=== PATIENT | male | born 1995 | race Caucasian/White ===

== ENCOUNTER 2017-01-07 13:53 | Inpatient (IN) | payer OTHER ==
[~2017-01-07] VITALS: Ht 180.3 cm; Wt 67.1 kg
[2017-01-07 15:00] VITALS: BP 127/70
--- NOTE | 2017-01-07 17:00 | NUR ---
PRE-ASSESSMENT: Pre-Assessment done at intake office, client is A/O x4, he presents with flat affect, anxious mood. Flushed face and dilated pupils noted. T 98.2, RR 18, BP 127/70, HR 96, spO2 @ 97% on RA, Pain 0/10. He is fully ambulatory. He denies any allergies to medication or food, but he reports seasonal allergies. He denies any withdrawal-induced seizure. PMH: insomnia, Asthma, Hep C. Medications taken at home Seroquel 200mg HS PO Ventolin PRN. Substance history Heroin 2gm IV daily for a month, last used morning prior to admission 1/4gm. Prescribed Klonopin 2mg BID daily, for the past 4 years, twice a week he takes 8 mg, last used 01/06/17. Xanax 8mg 4 X week for a month. Methamphetamine 1gm IV 4 X week for a month, last used 01/06/17. Marijuana an eight smoked daily for the past 3 years. Cocaine 1mg IV, last used a couple of months ago. Longest period of sobriety maybe a month, but he can not remember. He does not have a PCP, client gives verbal consent for HIV and declines Pneumonia vaccine at this time, stating maybe he already got it somewhere else this year. Protocol for vitals, urine drug screen, blood drawn and home medication discuss, client verbalizes understanding.
[2017-01-07 17:17] LABS: *AMPHETAMINE, URINE NEGATIVE (NEGATIVE); *BARBITURATE, URINE POSITIVE (NEGATIVE); *CANNABINOID, URINE POSITIVE (NEGATIVE); *COCCAINE, URINE NEGATIVE (NEGATIVE); *OPIATE, URINE POSITIVE (NEGATIVE); *PHENCYCLIDINE SCREEN,URINE NEGATIVE (NEGATIVE)
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
[2017-01-07] MEDS ORDERED: IBUPROFEN 600 MG TABLET PO PRN (18:15)
[2017-01-07] MEDS ORDERED: MAGNESIUM HYDROXIDE 30 ML LIQUID UDC PO PRN (18:15)
[2017-01-07] MEDS ORDERED: diphenhydrAMINE 50 MG CAPSULE PO PRN (18:15)
[2017-01-07] MEDS ORDERED: DICYCLOMINE HCL 20 MG TABLET PO PRN (18:15)
[2017-01-07] MEDS ORDERED: METHOCARBAMOL 750 MG TABLET PO PRN (18:15)
[2017-01-07] MEDS ORDERED: LOPERAMIDE HCL 2 MG CAPSULE PO PRN ×2 (18:15)
[2017-01-07] MEDS ORDERED: MAG HYDROX/AL HYDROX/SIMETH 30 ML LIQUID UDC PO PRN (18:15)
[2017-01-07] MEDS ORDERED: CLONIDINE HCL 0.1 MG TABLET PO PRN (18:15)
[2017-01-07] MEDS ORDERED: DIAZEPAM 10 MG TABLET PO PRN ×2 (18:15)
[2017-01-07] MEDS ORDERED: MIRALAX 17 GM POWD.PACK PO PRN (18:15)
[2017-01-07] MEDS ORDERED: ACETAMINOPHEN 325 MG TABLET PO PRN (18:15)
[2017-01-07] MEDS ORDERED: LORAZEPAM 2 MG/1 ML VIAL IM PRN (18:15)
[2017-01-07] MEDS ORDERED: BUPRENORPHINE HCL 2 MG TAB.SUBL SL PRN (18:15)
[2017-01-07] MEDS ORDERED: DIAZEPAM 5 MG TABLET PO PRN (18:15)
[2017-01-07] MEDS ORDERED: ONDANSETRON ODT 4 MG TAB.RAPDIS SL PRN (18:15)
[2017-01-07] MEDS ORDERED: ONDANSETRON 4 MG/2 ML VIAL IM PRN (18:15)
--- NOTE | 2017-01-07 19:15 | NUR ---
Start of Shift Note: Patient is a 21 y/o male admitted today 01/07/17 for BEnzo, Opiate and Methampethamine dependence. Patient reported medical history of Asthma, Insomnia, Concussion (August2016) & Hepatitis C. No seizure history noted. Patient has seasonal allergies. No allergies to medication or food. Patient wishes to be full code. Patient has no taper yet. Patient is alert & oriented x4. Patient is ambulatory with a steady gait. No shortness of breath noted. Respiration even & unlabored. Abdomen soft & non-distended. No complaints of nausea/vomiting. Patient presented with symptoms of sweating, chills, generalized body aches, stomach cramps & mild headache. Hand tremors felt. No hallucinations noted. Safety measures in place. Bed locked in lowest position. Both side rails up. Call light within pts reach. Will continue to monitor patient.
--- NOTE | 2017-01-07 19:30 | NUR ---
END OF SHIFT Endorsed to incoming nurse, client is a 21 yo male admitted for withdrawal from Benzodiazepine and Opiate. He is scheduled to start a 5 day Diazepam taper today @ 2100. Last CIWA 3/ COWS 4 @ 1715. He reports seasonal allergies, full code, regular diet. Adequate PO fluid intake 500mL, void x 1, Client denies history of withdrawal-induced seizure. She is on seizure precautions. Call light within reach. Side rails up x2/padded, bed locked and in low position.
[2017-01-07] MEDS ORDERED: ALBU18HF2 INH (19:37)
[2017-01-07] MEDS ORDERED: QUET200T PO (19:37)
[2017-01-07 19:54] LABS: BASOPHILS % (AUTO) 0.2 % (0.0-2.0); EOSINOPHILS # (AUTO) 0.1 K/uL (0.0-0.7); HEMATOCRIT 40.7 % (40-50); HEMOGLOBIN 13.6 G/DL (14.0-18.0); LYMPHOCYTES # (AUTO) 1.3 K/UL (0.8-4.8); LYMPHOCYTES % (AUTO) 21.2 % (20.5-51.5); MEAN CORPUSCULAR HEMOGLOBIN 30.2 UUG (27.0-31.0); MEAN CORPUSCULAR HGB CONC 34 g/dL (32.0-37.0); MEAN CORPUSCULAR VOLUME 90.2 FL (82.0-92.0); MONOCYTES # (AUTO) 0.7 K/UL (0.1-1.30); MONOCYTES % (AUTO) 11.3 % (0.0-11.0); NEUTROPHILS # (AUTO) 4.3 K/UL (1.8-8.9); NEUTROPHILS % (AUTO) 66.3 % (38.5-71.5); PLATELET COUNT (AUTO) 246 K/UL (150-450); RED BLOOD CELL COUNT(AUTO) 4.52 MIL/UL (4.7-6.1); WHITE BLOOD COUNT (AUTO) 6.4 K/UL (4.0-11.2)
[2017-01-07 20:00] VITALS: BP 107/60
[2017-01-07 20:04] LABS: ALANINE AMINOTRANSFERASE 107 U/L (16-63); ALKALINE PHOSPHATASE 70 U/L (50-136); ASPARTATE AMINOTRANSFERASE 65 U/L (15-37); BILIRUBIN,TOTAL 0.2 mg/dL (0.2-1.0); CARBON DIOXIDE 34 mmol/L (21-32); CHLORIDE 103 mmol/L (98-107); CREATININE 0.8 mg/dL (0.6-1.3); GLUCOSE 89 mg/dL (74-106); POTASSIUM 4.5 mmol/L (3.5-5.1); TOTAL PROTEIN, SERUM 7.6 g/dL (6.4-8.2); UREA NITROGEN, BLOOD 6 mg/dL (7-18)
[2017-01-07 20:07] LABS: ETHANOL < 3 MG/DL (0-0)
[2017-01-07] MEDS ORDERED: DIAZEPAM 10 MG TABLET PO ONE (21:00)
--- NOTE | 2017-01-07 21:00 | NUR ---
Patient's drug screen is positive for barbiturates. Pt stated that he might have taken phenobarbital but pt is not really sure.
--- NOTE | 2017-01-07 21:09 | NUR ---
PRN Administration Patient complaining of mild headache & stomach cramps. PRN Motrin & Bentyl administered as ordered. Patient also requesting for medication to help him sleep. PRN Benadryl given. Will continue to monitor for effectiveness of medication.
--- NOTE | 2017-01-07 21:09 | NUR ---
Patient presented with complains of sweating, chills, generalized body aches, stomach cramps and mild headache. Patient was given a one time dose of Valium 10mg for symtoms of withdrawal and for CIWA of 6 as ordered. Will continue to monitor patient.
--- NOTE | 2017-01-07 22:09 | NUR ---
PRN Reassessment Patient verbalized relief from stomach cramps and headache. Patient lying in bed with no facial grimacing noted. Patient appears comfortable. Will continue to montior patient.
[2017-01-08] VITALS: BP 116/75
[2017-01-08 04:00] VITALS: BP 112/62
--- NOTE | 2017-01-08 07:03 | NUR ---
End of Shift Note: Patient is a 21 y/o male admitted yesterday for BEnzo, Opiate and Methampethamine dependence. Patient still has no taper. Patient was given a Benadryl for sleep and a one time dose of Valium at 2100 as ordered and was effective. Patient remained stable and vitals remained WNL. Patient is compliant with treatment plan. Last COWS 6 CIWA 3. Patient still asleep at this time and appears comfortable. No s/s of distress noted. Pt slept for a total of 9 hours. Pt voided 1x with no bowel movement. All needs attended & met. Safety precautions are in place. Will continue to monitor patient.
[2017-01-08 08:00] VITALS: BP 135/63
--- NOTE | 2017-01-08 08:00 | NUR ---
START OF SHIFT Received pt Aox4. Patient states he slept "alright" but is experiencing chills and stomach cramps. Patient is to start taper this shift.. PRN benadryl, Motrin, and Bentyl given per night nurse. Patient slept 9 hours. COWS 10 CIWA 8 this morning at 0800. Encouraged pt to increase fluid intake. Encouraged pt to rest during shift. Encouraged pt to notify RN if S/S of W/D worsen. Vital signs stable. Will monitor closely and offer help frequently.
[2017-01-08] MEDS: DIAZEPAM 10 MG TABLET PO SCH ×4 (08:56→21:19)
[2017-01-08] MEDS: BUPRENORPHINE HCL 2 MG TAB.SUBL SL SCH ×4 (08:56→21:19)
[2017-01-08] MEDS: MULTIVITAMINS,THERAPEUTIC TABLET PO SCH (08:56)
[2017-01-08] MEDS ORDERED: 5 DAY TAPER VALIUM-SERENITY PROTOCOL PO PRN (09:00)
[2017-01-08] MEDS ORDERED: 5 DAY TAPER BUPRENORPHINE -SERENITY PROTOCOL SL PRN (09:00)
[2017-01-08] MEDS ORDERED: TUBERCULIN,PURIF.PROT.DERIV. 5 TU/0.1 ML TEST ID ONE (09:00)
[2017-01-08 12:00] VITALS: BP 111/70
[2017-01-08] MEDS ORDERED: ALBUTEROL SULFATE 8 GM HFA.AER.AD INH PRN (13:30)
[2017-01-08] MEDS ORDERED: ALBUTEROL SULFATE 2.5 MG/3 ML NEBU NEB PRN (14:00)
[2017-01-08 16:55] VITALS: BP 133/89
--- NOTE | 2017-01-08 18:45 | NUR ---
END OF SHIFT NOTE PATIENT STARTED ON VALIUM/SUBUTEX TAPER THIS SHIFT. NO PRNS GIVEN DURING SHIFT. PATIENT RESTED DURING SHIFT AND SOCIALIZED WITH PEERS. LAST COWS 10 CIWA 6. VITAL SIGNS STABLE. NO DISTRESS NOTED. ALL NEEDS MET. ALL SAFETY MEASURES IN PLACE. WILL ENDORSE TO NIGHT NURSE.
--- NOTE | 2017-01-08 19:15 | NUR ---
START OF SHIFT NOTE : Patient is a 21 y/o male admitted today 01/07/17 for BEnzo, Opiate and Methampethamine dependence. Patient reported medical history of Asthma, Insomnia, Concussion (August2016) & Hepatitis C. No seizure history noted. Patient has seasonal allergies. No allergies to medication or food. Patient wishes to be full code. No shortness of breath noted. Respiration even & unlabored. Abdomen soft & non-distended. No complaints of nausea/vomiting. Patient presented with symptoms mild headache, hand tremors felt. No hallucinations noted. Safety measures in place. Bed locked in lowest position. Both side rails up. Call light within pts reach. Will continue to monitor patient.
[2017-01-08 20:00] VITALS: BP 130/88
[2017-01-08] MEDS: QUETIAPINE FUMARATE 200 MG TABLET PO SCH (21:19)
--- NOTE | 2017-01-09 06:36 | NUR ---
END OF SHIFT NOTE : Patient is a 21 y/o male admitted today 01/07/17 for BEnzo, Opiate and Methampethamine dependence. Patient reported medical history of Asthma, Insomnia, Concussion (August2016) & Hepatitis C. No seizure history noted. Patient has seasonal allergies. No allergies to medication or food. Patient wishes to be full code. Pt remains compliant with the treatment plan. No PRNs were given during my shift. V/S remain WNL. RR=16, even and unlabored, lungs clear upon auscultation, abdomen soft and non- distended. Pt denies nausea, vomiting and diarrhea. LAST CIWA=3 ,COWS=3 at 0400 , [id number] ml, voided x4 , slept 5 hours. Safety measures in place : bed on lowest position with side rails x2 up for safety, call light within reach. Will continue to monitor closely and offer help.
--- NOTE | 2017-01-09 07:52 | NUR ---
START OF SHIFT Received pt Aox4. Patient states he feels "okay." Patient presents fatigued. Patient is continuing on 5 day Subutex/5 day Valium taper. No PRNs given per night nurse. Patient slept 5 hours. Last COWS 3 CIWA 3 per night nurse. Encouraged pt to increase fluid intake. Encouraged pt to rest during shift. Encouraged pt to notify RN if S/S of W/D worsen. Vital signs stable. Will monitor closely and offer help frequently.
[2017-01-09 08:00] VITALS: BP 112/65
[2017-01-09] MEDS: GABAPENTIN 300 MG CAPSULE PO SCH ×2 (08:53→14:13)
[2017-01-09] MEDS: BUPRENORPHINE HCL 2 MG TAB.SUBL SL SCH ×3 (08:53→21:59)
[2017-01-09] MEDS: DIAZEPAM 10 MG TABLET PO SCH ×3 (08:53→21:59)
[2017-01-09] MEDS: MULTIVITAMINS,THERAPEUTIC TABLET PO SCH (08:53)
[2017-01-09 12:00] VITALS: BP 114/66
[2017-01-09 13:09] LABS: HEPATITIS B SURFACE AG Negative (Negative)
--- NOTE | 2017-01-09 15:25 | NUR ---
[facility] POSITIVE. CONTACT PRECAUTIONS IN PLACE. PT EDUCATED ON MRSA AND ISOLATION. ALL QUESTIONS ANSWERED
[2017-01-09 16:00] VITALS: BP 116/69
--- NOTE | 2017-01-09 16:15 | NUR ---
PRN REASSESSMENT PATIENT REPORTS IMPROVEMENT IN HEARTBURN
--- NOTE | 2017-01-09 17:33 | NUR ---
PRN MEDICATION MAALOX GIVEN FOR C/O HEARTBURN
--- NOTE | 2017-01-09 18:26 | NUR ---
END OF SHIFT NOTE PATIENT CONTINUED ON VALIUM/SUBUTEX TAPER THIS SHIFT. PATIENT ON ISOLATION PRECAUTIONS FOR MRSA OF THE NARES. PRN MAALOX GIVEN DURING SHIFT. PATIENT ATTENDED GROUPS AND ACTIVITIES AND SOCIALIZED WITH PEERS. LAST COWS 4 CIWA 3. VITAL SIGNS STABLE. NO DISTRESS NOTED. ALL NEEDS MET. ALL SAFETY MEASURES IN PLACE. WILL ENDORSE TO NIGHT NURSE.
[2017-01-09] MEDS ORDERED: CALCIUM CARBONATE 500 MG TAB.CHEW PO PRN (19:00)
--- NOTE | 2017-01-09 19:15 | NUR ---
START OF SHIFT NOTE : Patient is a 21 y/o male admitted today 01/07/17 for BEnzo, Opiate and Methampethamine dependence. Patient reported medical history of Asthma, Insomnia, Concussion (August2016) & Hepatitis C. No seizure history noted. Patient has seasonal allergies. No allergies to medication or food. Patient wishes to be full code. No shortness of breath noted. Respiration even & unlabored. Abdomen soft & non-distended. No complaints of nausea/vomiting. Patient presented with symptoms mild headache, hand tremors felt. No hallucinations noted. Pt. is on Isolation because of MRSA nares. Safety measures in place. Bed locked in lowest position. Both side rails up. Call light within pts reach. Will continue to monitor patient.
[2017-01-09 20:00] VITALS: BP 140/80
[2017-01-09] MEDS: MUPIROCIN 2% OINT 22 GM TUBE NS SCH (21:00)
[2017-01-09] MEDS ORDERED: GABAPENTIN 300 MG CAPSULE PO SCH (21:00)
[2017-01-09] MEDS: QUETIAPINE FUMARATE 200 MG TABLET PO SCH (21:00)
[2017-01-09] MEDS: CLONIDINE HCL 0.1 MG TABLET PO SCH (22:01)
--- NOTE | 2017-01-10 06:49 | NUR ---
END OF SHIFT NOTE : Patient is a 21 y/o male admitted today 01/07/17 for BEnzo, Opiate and Methamphetamine dependence. Patient reported medical history of Asthma, Insomnia, Concussion (August2016) & Hepatitis C. No seizure history noted. Patient has seasonal allergies. No allergies to medication or food. Patient wishes to be full code. Pt. is on Isolation because of MRSA nares. Bactroban oint. not given, because pt. was out of the room. Pt remains compliant with the treatment plan. No PRNs were given during my shift. V/S remain WNL. RR=16, even and unlabored, lungs clear upon auscultation, abdomen soft and non- distended. Pt denies nausea, vomiting and diarrhea. LAST CIWA=3 ,COWS=3 at 0400 , INTAKE= 710 ml, voided x1 , slept 6 1/2 hours. Safety measures in place : bed on lowest position with side rails x2 up for safety, call light within reach. Will continue to monitor closely and offer help.
--- NOTE | 2017-01-10 07:00 | NUR ---
Start of Shift Notes: Received patient in his room. Awake, alert and verbally responsive. Oriented x 4. Able to make needs known. Affect flat. Respirations even and unlabored. No SOB noted. Skin warm and dry to touch. Abdomen soft and non-distended with (+) BS in all 4 quadrants. No complains of N/V/D or constipation noted. Bladder non-distended. Voids independently. Denies dysuria. Ambulatory ad amado with steady gait. Patient is a 21 year old male admitted for opiate and BZO dependence who was placed on a modified Valium and 5-day Valium taper as ordered. No adverse reactions noted. Has past medical hx of asthma, insomnia, concussion on August 2016 and Hep C. Has seasonal allergies. Educated patient on his current plan of care for the day and his medication regimen. Encouraged support, oral fluid intake and group participation to learn new skills to prevent relapse. Safety precautions in place. Call light kept in reach. Will continue to monitor during the day.
[2017-01-10 08:00] VITALS: BP 114/62
[2017-01-10] MEDS: CLONIDINE HCL 0.1 MG TABLET PO SCH ×2 (08:46→21:06)
[2017-01-10] MEDS: GABAPENTIN 300 MG CAPSULE PO SCH ×3 (08:46→21:07)
[2017-01-10] MEDS: MULTIVITAMINS,THERAPEUTIC TABLET PO SCH (08:46)
[2017-01-10] MEDS: DIAZEPAM 5 MG TABLET PO SCH ×4 (08:46→21:07)
[2017-01-10] MEDS: MUPIROCIN 2% OINT 22 GM TUBE NS SCH ×2 (08:47→21:06)
[2017-01-10] MEDS ORDERED: BUPRENORPHINE HCL 2 MG TAB.SUBL SL SCH (09:00)
[2017-01-10 12:00] VITALS: BP 120/61
[2017-01-10] MEDS: BUPRENORPHINE HCL 2 MG TAB.SUBL SL SCH ×2 (14:18→21:07)
[2017-01-10 16:00] VITALS: BP 132/65
--- NOTE | 2017-01-10 18:33 | NUR ---
END OF SHIFT NOTE PATIENT CONTINUED ON VALIUM/SUBUTEX TAPER THIS SHIFT. PATIENT ON ISOLATION PRECAUTIONS FOR MRSA OF THE NARES. NO PRNS GIVEN DURING SHIFT DETOX MEDS ARE EFFECTIVE. PATIENT ATTENDED GROUPS AND ACTIVITIES AND SOCIALIZED WITH PEERS. LAST COWS 4 CIWA 2. VITAL SIGNS STABLE. NO DISTRESS NOTED. ALL NEEDS MET. ALL SAFETY MEASURES IN PLACE. WILL ENDORSE TO NIGHT NURSE.
[2017-01-10 20:00] VITALS: BP 133/79
--- NOTE | 2017-01-10 20:00 | NUR ---
START OF SHIFT NOTE PATIENT ALERT AND ORIENTED X 4. RESPIRATION EVEN AND UNLABORED. NO SOB. PATIENT REPORTS ANXIETY, SWEATING , HEADACHE AND GENERALIZED BODY ACHES 6/10, RESTLESSNESS, NO N/V AND STUFFY NOSE. RECEIVED REPORT FROM DAY SHIFT NURSE. PATIENT CONTINUE ON 5 DAY ATIVAN AND 5 DAY SUBUTEX TAPER. PATIENT REPORTS PMH OF ASTHMA, INSOMNIA, CONCUSSION (AUGUST 2016) AND HEP C. PATIENT WITH SEASONAL ALLERGY . NO SEIZURE HISTORY. SKIN INTACT. PATIENT IS ON CONTACT ISOLATION FOR MRSA OF NARES. PATIENT DID NOT REQUIRE ANY PRN MEDICATION. LAST COWS 2 AND CIWA 2. PATIENT IS ON FALL/SEIZURE PRECAUTION. SAFETY MEASURES IN PLACE. CALL LIGHT IN REACH. WILL CONTINUE TO MONITOR. '
[2017-01-10] MEDS: QUETIAPINE FUMARATE 200 MG TABLET PO SCH (21:07)
[2017-01-10] MEDS: BACLOFEN 10 MG TABLET PO SCH (21:07)
[2017-01-11] VITALS: BP 112/62
[2017-01-11 04:00] VITALS: BP 115/52
--- NOTE | 2017-01-11 06:50 | NUR ---
END OF SHIFT NOTE PATIENT REMAIN ALERT AND ORIENTED X 4. RESPIRATION EVEN AND UNLABORED. NO SOB. PATIENT REPORTED ANXIETY, SWEATING , HEADACHE AND GENERALIZED BODY ACHES 6/10, RESTLESSNESS, NO N/V AND STUFFY NOSE BEGINNING OF SHIFT. PATIENT CONTINUE ON 5 DAY ATIVAN AND 5 DAY SUBUTEX TAPER, TOLERATED WELL. NO ADVERSE REACTION. PATIENT COMPLIANT WITH MEDICATIONS AND TREATMENT PLAN. PATIENT ATTENDED GROUPS. PATIENT IS ON CONTACT ISOLATION FOR MRSA OF NARES, STRICTLY OBSERVED. ON BACTROBAN OINTMENT. PATIENT DID NOT REQUIRE ANY PRN MEDICATION. PATIENT IS ON FALL/SEIZURE PRECAUTION. SAFETY MEASURES IN PLACE. CALL LIGHT IN REACH. WILL CONTINUE TO MONITOR. SLEPT HOURS. FLUID INTAKE ML. VOIDED X . BM. LAST COWS 1 AND CIWA 1.
--- NOTE | 2017-01-11 07:41 | NUR ---
START OF SHIFT NOTE : Received report from night auditor nurse. Patient is a 21 y/o male admitted today 01/07/17 for Benzo, Opiate and Methampethamine dependence. Pt is on a 5 day Valium and 5 day Subutex tapers. Tolerating well. Pt is Hep C+. Pt is alert and oriented X4. Color good, skin warm and dry. Resting in bed. Safety precautions observed. Call light within reach. Will continue to monitor.
[2017-01-11] MEDS: BOOST PLUS 237 ML LIQUID (RICH CHOCOLATE) PO SCH ×2 (08:00→17:19)
[2017-01-11 08:29] VITALS: BP 115/52
[2017-01-11] MEDS: CLONIDINE HCL 0.1 MG TABLET PO SCH ×3 (09:00→21:18)
[2017-01-11] MEDS: BUPRENORPHINE HCL 2 MG TAB.SUBL SL SCH ×3 (09:39→21:18)
[2017-01-11] MEDS: MULTIVITAMINS,THERAPEUTIC TABLET PO SCH (09:39)
[2017-01-11] MEDS: BACLOFEN 10 MG TABLET PO SCH (09:39)
[2017-01-11] MEDS: GABAPENTIN 300 MG CAPSULE PO SCH ×3 (09:39→21:17)
[2017-01-11] MEDS: DIAZEPAM 5 MG TABLET PO SCH ×3 (09:39→21:18)
[2017-01-11] MEDS: MUPIROCIN 2% OINT 22 GM TUBE NS SCH ×2 (09:40→21:17)
[2017-01-11 13:18] VITALS: BP 118/68
[2017-01-11] MEDS: BACLOFEN 20 MG TABLET PO SCH ×2 (14:23→21:18)
[2017-01-11] MEDS ORDERED: BACLOFEN 10 MG TABLET PO SCH (15:00)
[2017-01-11 17:22] VITALS: BP 118/68
--- NOTE | 2017-01-11 18:46 | NUR ---
END OF SHIFT NOTE: Report given to [employer] senior specialist nurse . Patient is a 21 y/o male admitted today 01/07/17 for Benzo, Opiate and Methampethamine dependence. Pt is on a 5 day Valium and 5 day Subutex tapers. Tolerating well. Pt is Hep C+. Pt is alert and oriented X4. Color good, skin warm and dry. Vital signs have remained stable throughout shift . Last CIWA 4 COWS 5 @ 1500. Safety precautions observed. Call light within reach
[2017-01-11 20:00] VITALS: BP 147/82
--- NOTE | 2017-01-11 20:00 | NUR ---
START OF SHIFT NOTE PATIENT ALERT AND ORIENTED X 4. RESPIRATION EVEN AND UNLABORED. PATIENT REPORTS ANXIETY, SWEATING, NO N/V, DENIES ANY PAIN, STUFFY NOSE AND NOTED RESTLESS. RECEIVED REPORT FROM DAY SHIFT NURSE. PATIENT IS A 21 YEAR OLD MALE ADMITTED FOR BENZO/OPIATE DEPENDENCE. PATIENT CONTINUE ON 5 DAY ATIVAN AND 5 DAY VALIUM TAPER, TOLERATED WELL. NO ADVERSE REACTION. PATIENT WITH SEASONAL ALLERGIES. PATIENT REPORTS PMH OF ASTHMA, INSOMNIA, CONCUSSION (AUGUST 2016) AND HEPATITIS C. SKIN INTACT. PATIENT IS ON FALL/SEIZURE PRECAUTION. PATIENT COMPLIANT WITH MEDICATION AND TREATMENT PLAN. PATIENT DID NOT REQUIRE ANY PRN MEDICATION. LAST COWS 5 AND CIWA 4.SAFETY MEASURES IN PLACE. CALL LIGHT IN REACH. WILL CONTINUE TO MONITOR. Addendum: 01/12/17 at 0156 by TROY MARTINO LVN CONTINUE ON CONTACT ISOLATION FOR MRSA OF NARES. PATIENT ON BACTROBAN OINTMENT.
[2017-01-11] MEDS: QUETIAPINE FUMARATE 200 MG TABLET PO SCH (21:18)
--- NOTE | 2017-01-12 | NUR ---
COWS/CIWA/VS PATIENT REFUSED TO BE WOKEN UP FOR VS. COWS/CIWA UNABLE TO ASSESS. PATIENT IN BED ASLEEP. NO S/S OF DISTRESS. RR. 14. SAFETY MEASURES IN PLACE. CALL LIGHT IN REACH. WILL CONTINUE TO MONITOR.
--- NOTE | 2017-01-12 07:10 | NUR ---
END OF SHIFT NOTE PATIENT HAD UNEVENTFUL NIGHT. PATIENT REMAIN ALERT AND ORIENTED X 4. RESPIRATION EVEN AND UNLABORED. PATIENT REPORTS ANXIETY, SWEATING, NO N/V, DENIES ANY PAIN, STUFFY NOSE AND NOTED RESTLESS. PATIENT CONTINUE ON 5 DAY ATIVAN AND 5 DAY VALIUM TAPER FOR BENZO/OPIATE DEPENDENCE, TOLERATED WELL. NO ADVERSE REACTION WITH SEASONAL ALLERGIES. PATIENT REPORTS PMH OF ASTHMA, INSOMNIA, CONCUSSION (AUGUST 2016) AND HEPATITIS C. SKIN INTACT. PATIENT IS ON FALL/SEIZURE PRECAUTION. PATIENT COMPLIANT WITH MEDICATION AND TREATMENT PLAN. PATIENT DID NOT REQUIRE ANY PRN MEDICATION.SAFETY MEASURES IN PLACE. CALL LIGHT IN REACH. WILL CONTINUE TO MONITOR. SLEPT 6 HOURS. FLUID INTAKE 1,105 ML. VOIDED X 2 . NO BM. LAST COWS 5 AND CIWA 4 .
--- NOTE | 2017-01-12 07:36 | NUR ---
BEGINNING OF SHIFT Patient endorsement report received from night guard nurse, all pertinent information discussed. Patient is a 21 year old male, with admitting Dx: opiate/etoh/bzo dependence. with substance use history of methamphetamine and cocaine. Patient admitted 01/07/2017, currently with ongoing taper of 5 day Subutex and 5 day Valium as ordered, well tolerated, no ASE noted, under close observation. Patient received no PRNs during night guard. Patient slept for 6 hours. Patient received awake, alert and oriented x4, educated regarding plan of care for the day and medication regimen with good verbal understanding. Safety measures in place. call light kept with in reach, will continue to monitor closely. safety measures in place.
[2017-01-12 08:33] VITALS: BP 118/70
[2017-01-12] MEDS: BACLOFEN 20 MG TABLET PO SCH ×3 (08:36→21:03)
[2017-01-12] MEDS: GABAPENTIN 300 MG CAPSULE PO SCH ×3 (08:36→21:03)
[2017-01-12] MEDS: CLONIDINE HCL 0.1 MG TABLET PO SCH ×3 (08:36→21:03)
[2017-01-12] MEDS: MULTIVITAMINS,THERAPEUTIC TABLET PO SCH (08:36)
[2017-01-12] MEDS: MUPIROCIN 2% OINT 22 GM TUBE NS SCH ×2 (08:37→21:02)
[2017-01-12] MEDS: BOOST PLUS 237 ML LIQUID (RICH CHOCOLATE) PO SCH ×2 (08:37→17:27)
[2017-01-12] MEDS ORDERED: DIAZEPAM 5 MG TABLET PO SCH (09:00)
[2017-01-12] MEDS ORDERED: BUPRENORPHINE HCL 2 MG TAB.SUBL SL SCH ×2 (09:00)
[2017-01-12 12:58] VITALS: BP 125/80
[2017-01-12 17:00] VITALS: BP 101/61
--- NOTE | 2017-01-12 18:57 | NUR ---
END OF SHIFT Patient alert and oriented x4, vital signs stable during shift. Patient compliant with therapeutic plan of care. Patient with admitting Dx: opiate/bzo dependence. Patient currently with ongoing 5 day Subutex and 5 day Valium taper as ordered, last administration of taper administered this morning, well tolerated, no ASE noted. Patient is scheduled to be discharged, tomorrow to new existing, noted self motivated towards sobriety. 0900 assessment patient presented with: c/o chills, moist eyes, stomach cramps, tremors that can be felt but not seen, mild anxiety, barely sweating, and mild agitation with cow score of: 5 and ciwa score of: 4; 1300 assessment patient presented with: heart rate of 93, tremors that can be felt but not seen, and mild anxiety with cow score of: 3 and ciwa score of: 2. 1700 assessment patient presented with: heart rate of 81, tremors that can be felt but not seen, and mild anxiety with cow score of: 3 and ciwa score of: 2. Patient denies any SI/HI. Encouraged to attend group therapies/sessions to learn new coping skills to prevent relapse, noted attending and participating. Encouraged adequate PO fluid intake as tolerated. Safety measures in place. Call light kept with in reach. All needs met and rendered. Patient endorsed to stamps or coins salesperson nurse, all pertinent information discussed.
[2017-01-12 20:00] VITALS: BP 127/73
--- NOTE | 2017-01-12 20:00 | NUR ---
Start of Shift Pt is a 21 year old male admitted for Benzo/Opiate/Meth dependence, placed on 5 day Valium and 5 day Subutex taper, completed. Pt reported using Klonopin 4-8mg/daily x1 month, Xanax 8 mg 4x /week, Heroin 2g/daily x1 month, Meth 1g/daily x1 month and cocaine 1g/daily. PMH: asthma, insomnia, concussion (August 2016) and Hepatitis C. Pt reports seasonal allergies, fall/seizure precautions (no hx of seizures), regular diet and full code. Upon assessment, pt reports feeling mildly anxious due to discharge scheduled for tomorrow, skin is flushed, respirations even/unlabored, denies SOB/chest pain, denies n/v/d/. PT is on contact isolation precaution for MRSA of the nares, pt is on Bactroban ointment. Safety measures in place, call light within reach, side rails up x2, bed locked and in low position. Will continue to monitor.
[2017-01-12] MEDS ORDERED: IBUP-1955 PO (20:24)
[2017-01-12] MEDS ORDERED: BACL20TA PO (20:24)
[2017-01-12] MEDS ORDERED: DICY20TA28 PO (20:24)
[2017-01-12] MEDS ORDERED: CLON0.1T14 PO (20:24)
[2017-01-12] MEDS ORDERED: DIPH50CA37 PO (20:24)
[2017-01-12] MEDS ORDERED: GABA-534 PO (20:24)
[2017-01-12] MEDS: QUETIAPINE FUMARATE 200 MG TABLET PO SCH (21:03)
--- NOTE | 2017-01-13 | NUR ---
Pt refused to be woken up for 0000 VS COWS/CIWA deferred d/t pt sleeping, to assess while pt is awake as ordered. Safety measures in place. Will continue to monitor.
--- NOTE | 2017-01-13 04:00 | NUR ---
Pt refused to be woken up for 0400 VS COWS/CIWA deferred d/t pt sleeping, to assess while pt is awake as ordered. Safety measures in place. Will continue to monitor.
--- NOTE | 2017-01-13 07:00 | NUR ---
End of Shift Pt is a 21 year old male admitted for Benzo/Opiate/Meth dependence, placed on 5 day Valium and 5 day Subutex taper, completed. Pt reported using Klonopin 4-8mg/daily x1 month, Xanax 8 mg 4x /week, Heroin 2g/daily x1 month, Meth 1g/daily x1 month and cocaine 1g/daily. PMH: asthma, insomnia, concussion (August 2016) and Hepatitis C. Pt reports seasonal allergies, fall/seizure precautions (no hx of seizures), regular diet and full code. During shift, pt reported feeling mildly anxious due to discharge scheduled for today - scheduled medications administered, no PRN given during shift, COWS 3 and CIWA 1. Pt remains on contact isolation precautions for MRSA of the nares, pt is on Bactroban ointment. Pt slept for 6 hours, intake of 1100 ml PO, voids x2 and stool x0. Safety measures in place, call light within reach, side rails up x2, bed locked and in low position. Endorsed to day shift nurse.
--- NOTE | 2017-01-13 07:43 | NUR ---
BEGINNING OF SHIFT Patient endorsement report received from senior corporate recruiter nurse, all pertinent information discussed. Patient is a 21 year old male, with admitting Dx: opiate/etoh/bzo dependence. with substance use history of methamphetamine and cocaine. Patient admitted 01/07/2017, Patient competed detox tapers well tolerated, no ASE noted, and is scheduled to be discharged today. Patient received no PRNs during senior corporate recruiter. Patient slept for 6 hours. Patient with last cow score of: 3 and last ciwa score of: 1. Patient received awake, alert and oriented x4, educated regarding plan of care for the day and medication regimen with good verbal understanding. Safety measures in place. call light kept with in reach, will continue to monitor closely. safety measures in place.
[2017-01-13 08:20] VITALS: BP 125/59
[2017-01-13] MEDS: BOOST PLUS 237 ML LIQUID (RICH CHOCOLATE) PO SCH (08:37)
[2017-01-13] MEDS: BACLOFEN 20 MG TABLET PO SCH (08:37)
[2017-01-13] MEDS: MULTIVITAMINS,THERAPEUTIC TABLET PO SCH (08:37)
[2017-01-13] MEDS: GABAPENTIN 300 MG CAPSULE PO SCH (08:37)
[2017-01-13 08:38] VITALS: BP 125/62
[2017-01-13] MEDS: CLONIDINE HCL 0.1 MG TABLET PO SCH (08:38)
[2017-01-13] MEDS: MUPIROCIN 2% OINT 22 GM TUBE NS SCH (08:39)
[2017-01-13] MEDS ORDERED: BUPRENORPHINE HCL 2 MG TAB.SUBL SL SCH (09:00)
--- NOTE | 2017-01-13 09:28 | NUR ---
D/C NOTE Pt is A/O x4. V/S remain WNL. Pt denies SI/HI or hallucinations. Pt shows no s/s of acute withdrawal at this time, and is stable. has medically cleared pt for d/c . Education on Hepatitis C, smoking cessation and medication side effects provided. Pt verbalizes understanding. All pt belongings are in belonging bag, including prescriptions, pt did not have any home medications. COWS are 0 and CIWA 0. Refuses PNU vaccination. Pt is being accompanied by CEMENT PRODUCTION PLANT OPERATOR at this time to be transported to rehab. All needs met.
== END 2017-01-13 09:28 | disposition other institution (70) | DRG 895 ==
LOC: SRC 16:17
PROVIDERS: ADMIT Internal Medicine; ATTEND Internal Medicine
PROC: HZ2ZZZZ Detoxification Services for Substance Abuse Treatment (ICD-10-PCS; principal; 2017-01-07)
PROC: HZ41ZZZ Group Counseling for Substance Abuse Treatment, Behavioral (ICD-10-PCS; 2017-01-08)
DX: F11.23 Opioid dependence with withdrawal (principal); E87.3 Alkalosis; F15.20 Other stimulant dependence, uncomplicated; F39 Unspecified mood [affective] disorder; B19.20 Unspecified viral hepatitis C without hepatic coma; J45.20 Mild intermittent asthma, uncomplicated; Z22.322 Carrier or suspected carrier of Methicillin resistant Staphylococcus aureus; Z81.8 Family history of other mental and behavioral disorders; Z59.1 Inadequate housing; Z79.899 Other long term (current) drug therapy; F13.230 Sedative, hypnotic or anxiolytic dependence with withdrawal, uncomplicated; F17.210 Nicotine dependence, cigarettes, uncomplicated; E86.0 Dehydration; D64.9 Anemia, unspecified; F12.20 Cannabis dependence, uncomplicated
CPT/HCPCS: 36415; 70030-TC; 71010; 80307; 80345; 80349; 80361; 83735; 85025; 86580; 86592; 86705; 86803; 87340; 87806; A4663; G0480; Q0163